=== PATIENT | female | born 1945 | race Two or more races ===

== ENCOUNTER 2024-10-25 21:38 | Emergency (ER) | payer OTHER ==
[~2024-10-25] VITALS: Ht 157.5 cm; Wt 66.7 kg
[2024-10-25] MEDS ORDERED: AMBIEN5 MG PO (21:43)
[2024-10-25] MEDS ORDERED: SIMVASTATIN5 MG PO (21:43)
[2024-10-25] MEDS ORDERED: SYNTHROID75 MCG PO (21:43)
[2024-10-25] MEDS ORDERED: FAMOTIDINE/PF 20 MG in 0.9 % SODIUM CHLORIDE 8 ML IV PUSH STA (22:13)
[2024-10-25] MEDS ORDERED: KETOROLAC TROMETHAMINE 30 MG VIAL IV ONE (22:15)
[2024-10-25] MEDS ORDERED: KETOROLAC TROMETHAMINE 30 MG VIAL ONE (23:23)
[2024-10-25] MEDS ORDERED: FAMOTIDINE/PF 20 MG/2 ML VIAL ONE (23:23)
[2024-10-26] LABS: HEMATOCRIT 39.5 % (36.0-45.00); HEMOGLOBIN 13.4 g/dL (12.0-15.00); MEAN CELL VOLUME 91.9 fL (80.00-100.00); MEAN CORPUSCULAR HEMOGLOBIN 31.2 pg (27.00-32.0); MEAN CORPUSCULAR HGB CONC 33.9 g/dl (32.0-36.0); PLATELET COUNT 134 K/uL (150-450); RED CELL DISTRIBUTION WIDTH 14.3 % (11.5-14.5)
[2024-10-26 00:23] LABS: ALBUMIN 3.6 gm/dL (3.4-5.0); BILIRUBIN TOTAL 0.4 mg/dL (0.3-1.2); BILIRUBIN,CONJUGATED 0.17 mg/dL (0.0-0.2); BILIRUBIN,UNCONJUGATED 0.23 mg/dL (0.0-0.6); CALCIUM 9.2 mg/dL (8.5-10.1); CREATININE SERUM 0.74 mg/dL (0.55-1.02); GFR 75.51; POTASSIUM 4.41 mEq/L (3.5-5.1); TOTAL PROTEIN 6.6 gm/dL (6.4-8.2)
== END 2024-10-26 01:15 | disposition home or self-care (01) ==
LOC: ER 21:41
PROVIDERS: General Practice
DX: R10.11 Right upper quadrant pain (principal); E03.9 Hypothyroidism, unspecified; Z85.05 Personal history of malignant neoplasm of liver
CPT/HCPCS: 36415; 96365; 99283; J1885; J3490